=== PATIENT | female | born 1950 | race Caucasian/White ===

== ENCOUNTER 2016-12-04 10:33 | Observation (INO) | payer OTHER ==
[2016-12-04] MEDS ORDERED: ASPIRIN CHEWTAB 81 MG TABLET ONE (11:36)
[2016-12-04 11:37] LABS: ABSOLUTE NEUTROPHIL COUNT 4.1 K/mm3 (1.8-7.7); BASO % 0.6 % (0.2-1.0); EOS # 0.2 (0.0-0.5); EOS % 2.5 % (0.9-2.9); HEMATOCRIT 42.6 % (37.0-47.0); HEMOGLOBIN 13.9 gm/l (12.0-16.0); IMM NEUT% 0.3 % (0-1); LYMPH % 29.3 % (15-45); MEAN CELL VOLUME 90.1 fl (81.0-99.0); MEAN CORPUSCULAR HEMOGLOBIN 29.4 pg (27.0-31.0); MEAN CORPUSCULAR HGB CONC 32.6 g/dl (33.0-37.0); MEAN PLATELET VOLUME 10.4 fl (7.4-10.4); MONO # 0.4 (0.0-0.8); MONO % 5.4 % (4-12); NEUT % 61.9 % (43-75); PLATELET COUNT 336 K/mm3 (130-400); RED CELL DISTRIBUTION WIDTH 13.4 % (11.5-14.5)
[2016-12-04 11:41] LABS: URINE BILIRUBIN NEGATIVE (NEGATIVE); URINE BLOOD NEGATIVE (NEGATIVE); URINE GLUCOSE (UA) NEGATIVE (NEGATIVE); URINE LEUKOCYTE ESTERASE NEGATIVE (NEGATIVE); URINE NITRITE NEGATIVE (NEGATIVE); URINE PROTEIN NEGATIVE (NEGATIVE); URINE UROBILINOGEN NORMAL (0-1 mg/dl)
[2016-12-04 11:48] LABS: ALB/GLOB RATIO 1.2 (>1.0); CALCIUM 9.6 mg/dL (8.6-10.3); MAGNESIUM 1.9 mg/dL (1.9-2.7)
[2016-12-04 11:48] LABS: URINE APPEARANCE CLEAR; URINE COLOR YELLOW
--- NOTE | 2016-12-04 12:06 | RAD ---
CHEST 2 VIEWS HISTORY: Chest pain. Frontal and lateral chest radiographs dated 12/04/2016. COMPARISON: None. FINDINGS: FOCAL AIRSPACE OPACITY: No gross airspace consolidation. PLEURAL EFFUSION: None. CARDIOMEDIASTINAL SILHOUETTE: Moderate hiatal hernia. PNEUMOTHORAX: None identified. OSSEOUS STRUCTURES: No grossly destructive lesions. Moderate thoracic disc degeneration. IMPRESSION: No acute cardiopulmonary process noted. Moderate hiatal hernia noted.
[2016-12-04 15:10] VITALS: BMI 37.9
[2016-12-04] MEDS ORDERED: NITROGLYCERIN 0.4 MG/TAB.SUBL BOT SL PRN (16:10)
[2016-12-04] MEDS ORDERED: SODIUM CHLORIDE 0.9% 100 ML IV PRN (17:22)
[2016-12-04] MEDS ORDERED: BLISTEX LIPSTICK 1 EACH TP PRN (17:22)
[2016-12-04] MEDS ORDERED: BISACODYL 5 MG TABLET.EC PO PRN (17:22)
[2016-12-04] MEDS ORDERED: MENTHOL/CETYLPYRD 1 EACH LOZENGE PO PRN (17:22)
[2016-12-04] MEDS ORDERED: INSULIN ASPART (DOSE) 100 UNITS/1 ML SUB-Q PRN (17:22)
[2016-12-04] MEDS ORDERED: MAGNESIUM HYDROXIDE 30 ML UDCUP PO PRN (17:22)
[2016-12-04] MEDS ORDERED: ACETAMINOPHEN 325 MG TABLET PO PRN (17:22)
[2016-12-04] MEDS ORDERED: BISACODYL 10 MG SUP PR PRN (17:22)
[2016-12-04] MEDS ORDERED: ALBUTEROL SULFATE 200 PUFFS/INH INHALER IH PRN (17:39)
[2016-12-04] MEDS: PANTOPRAZOLE 40 MG TABLET DR PO SCH (18:36)
--- NOTE | 2016-12-04 20:42 | HP ---
RASHAD BOBO [id number] DATE OF : 1950 DATE OF ADMISSION: 12/04/2016 IDENTIFICATION: Ms. Bobo is a 66-year-old followed by Dr. Camilo Fuentes. CHIEF COMPLAINT: Chest pressure. HISTORY OF PRESENT ILLNESS: Ms. Bobo reports two nights this week, Wednesday and , with abdominal pain. She describes this as a constant ache that was quite severe, not associated with nausea, vomiting or any bowel changes. She did not seek medical attention for the abdominal pain. It resolved early this Wednesday morning. Then at about 8:00 A.M. today she started having chest pressure. This is described as a constant ache, substernal, associated with dyspnea, tremors and anxiety. She did feel like her heart was racing. There was no radiation of the pressure and no associated nausea or diaphoresis. She has no prior history of similar events. In the emergency department she was treated with oral aspirin and sublingual nitroglycerin, and the pressure resolved. Workup was otherwise negative and she was referred to the Hospitalist Service for observation. REVIEW OF SYSTEMS: HEENT - she reports a headache this morning. No lightheadedness or loss of consciousness. No problems with ears, eyes, nose or throat. Respiratory - she had upper respiratory symptoms with a cough a couple of weeks ago, but that has resolved. No coughing now. A little bit of dyspnea with the chest pressure. Cardiac - chest pressure and racing heart. Gastrointestinal - denies nausea, vomiting or reflux symptoms. Denies diarrhea, constipation, hematochezia or melena. She had the generalized abdominal pain Wednesday and nights as described above. Genitourinary - no dysuria, urgency or hematuria. Musculoskeletal - no complaints. Constitutional - no fevers or chills. PAST MEDICAL HISTORY: 1. Diabetes mellitus Type-2, with no known complications. 2. Benign essential hypertension. 3. Depression with anxiety. 4. Mild intermittent asthma. 5. Obesity, with a body mass index of 37.9. 6. Hiatal hernia noted on chest x-ray. The patient was not previously aware of that. PAST SURGICAL HISTORY: None. ALLERGIES: None. MEDICATIONS: 1. Albuterol inhaler, which she uses as needed. 2. Strattera 100 mg by mouth daily. 3. Montelukast 10 mg by mouth daily. 4. Losartan with hydrochlorothiazide 100/12.5 once daily. 5. Amlodipine 5 mg by mouth daily. 6. Metformin 500 mg by mouth twice a day. 7. Bupropion 300 mg by mouth daily. 8. Venlafaxine 37.5 three capsules by mouth daily. 9. Fluticasone 110 two puffs twice a day for asthma. HABITS: She is a former smoker, with a 25 year or so history of about a half pack a day. She quit greater than ten years ago. She does drink alcohol, one vodka martini in the evening for five days a week. SOCIAL HISTORY: She lives with her in [place]. 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 FAMILY HISTORY: Father had hypertension. No known coronary artery disease. PHYSICAL EXAMINATION: GENERAL: This is a pleasant obese woman who appears younger than her 66 years. VITAL SIGNS: Temperature 98.4 degrees Fahrenheit. Blood pressure 140/73. Pulse 87. Respiratory rate 20. Oxygen saturation 98% on room air. HEENT: Atraumatic. Pupils equal, round and reactive. Extraocular muscles intact. Oropharynx is moist. Dentition in good condition. NECK: No jugular venous distention, but she is somewhat diaphoretic. CHEST: Clear to auscultation. HEART: Regular. No murmur appreciated. ABDOMEN: Obese, soft and nontender. Normal bowel tones. No organomegaly. EXTREMITIES: Good peripheral pulses. No cyanosis, clubbing or edema. NEUROLOGIC: She is alert and oriented and has no focal deficits. LABORATORIES: CBC is entirely within normal limits. D-dimer normal at 0.27. Sodium 135, potassium 3.8, chloride 102, C02 of 24, BUN of 21 and creatinine 0.9. Glucose is elevated at 185. Liver enzymes are normal. Troponin-I less than 0.01. Lipase is normal. Urinalysis is completely negative. IMAGING: Chest x-ray; no acute cardiopulmonary process, but a moderate hiatal hernia is noted. EKG: Sinus rhythm, with Q-waves in III and aVF, suggesting possible old inferior infarction. ASSESSMENT: Ms. Bobo is a 66-year-old with diabetes, hypertension and a history of cigarette smoking who presents with chest pressure and abnormal, but not acutely so, EKG. PLAN: 1. Refer to observation with telemetry monitoring. 2. Repeat troponin at six hour intervals. 3. Anticipate Sanchez protocol myocardial perfusion study in the morning. 4. Continue outpatient medications. 5. Add pantoprazole. 6. Blood sugars before meals and at bedtime and cover with insulin as needed. 7. Venous thromboembolism risk is low and she does not require prophylaxis.. 8. Full code status. 9. She will continue aspirin and nitroglycerin as started in the emergency department. cc: Dr. Camilo Fuentes
[2016-12-04] MEDS: METFORMIN XR 500 MG TAB.XL PO SCH (20:51)
[2016-12-04] MEDS: DOCUSATE SODIUM 100 MG CAPSULE PO SCH (21:17)
[2016-12-04] MEDS: FLUTICASONE PROP 110 MCG 120 PUFF/INHALER IH SCH (21:18)
[2016-12-05 07:20] VITALS: BP 136/78
[2016-12-05] MEDS ORDERED: BUPROPION HCL 150 MG XL TAB.ER.24H PO SCH (09:00)
[2016-12-05] MEDS ORDERED: HYDROCHLOROTHIAZIDE 12.5 MG CAP PO SCH (09:00)
[2016-12-05] MEDS ORDERED: VENLAFAXINE 37.5 MG PO SCH (09:00)
[2016-12-05] MEDS ORDERED: ASPIRIN (ENTERIC COATED) 325 MG TABLET.EC PO SCH (09:00)
[2016-12-05] MEDS ORDERED: LOSARTAN POTASSIUM 50 MG TABLET PO SCH (09:00)
[2016-12-05] MEDS ORDERED: MONTELUKAST SODIUM 10 MG TABLET PO SCH (09:00)
[2016-12-05] MEDS ORDERED: ATOMOXETINE HCL 100 MG PO SCH (09:00)
--- NOTE | 2016-12-05 10:55 | NUC MED ---
Exam: Nuclear medicine myocardial SPECT, ejection fraction and wall motion Comparison: None Indication: Diabetes and chest pain. Technique: 14.0 mCi of technetium 99m sestamibi were administered for the rest portion of the exam and SPECT imaging was obtained per protocol. Stress was achieved Sanchez protocol in which 80% of maximum heart rate was matched. Please see separate EKG for report. At maximum stress, 44.1 mCi of technetium 99m sestamibi were administered and SPECT imaging was obtained per protocol. Findings: Ejection fraction is calculated at 81%%. Relative hypokinesia of the apex is noted but may be artifact in females. No significant focal wall motion abnormalities are seen. Myocardial perfusion is normal during both stress and rest. Impression: 1. No evidence of significant stress-induced ischemia. 2. Ejection fraction 81%. 3. No significant focal wall motion abnormalities. Report called to Dr. Rockwell 1050 hours 12/05/2016.
--- NOTE | 2016-12-05 11:10 | PDOC43 ---
- Subjective Chief Complaint: chest pain no symptoms since admit. - Objective Vital Signs Temperature 97.7 F 12/05/16 07:19 Pulse Rate 86 12/05/16 07:19 Respiratory Rate 18 12/05/16 07:19 Blood Pressure 136/78 12/05/16 07:19 O2 Saturation by Pulse Oximetry 98 12/05/16 07:19 Oxygen Delivery Method Room Air Oxygen Flow Rate 0 Intake and Output 12/04/16 12/05/16 12/06/16 06:59 06:59 06:59 Intake Total 220 Balance 220 General: Alert, Oriented x3, Cooperative, No Acute Distress HEENT: Mucous membr. moist/pink Lungs: Clear to Auscultation Bilaterally Cardiovascular: Regular Rate and Rhythm Abdomen: Soft, Normal Bowel Sounds, No Tenderness, No Masses Extremities: Normal Pulses, No Edema Skin: Normal Color Neurological: Normal Speech Psych/Mental Status: Normal Mood 12/05/16 12/05/16 12/04/16 10:47 07:01 20:55 POC Capillary Glucose 104 H 113 H 116 H Current Medications: Current meds reviewed in EMR. - Problems: Assessment/Plan (1) Chest pain Status: Acute Assessment/Plan: Negative enzymes, ETT, and MPI. Discharge (2) Anxiety and depression Status: Chronic Assessment/Plan: Continue usual meds (3) Asthma Qualifiers: Asthma severity: mild intermittent Status: Chronic Assessment/Plan: stable (4) Diabetes type 2, controlled Qualifiers: Diabetes mellitus complication status: without complication Diabetes mellitus terminal make up operator insulin use: without intermediate use Qualifier Code: (E11.9 ) Type 2 diabetes mellitus without complications Status: Chronic Assessment/Plan: Well controlled (5) HTN (hypertension), benign Status: Chronic Assessment/Plan: resume amlodipine (6) Hiatal hernia Status: Chronic Assessment/Plan: May be source of symptoms, discuss with PCP Dr. Cardenas (7) Obesity, Class II, BMI 35-39.9 Status: Chronic Assessment/Plan: Complicates care by contributing to hiatal hernia.
[2016-12-05] MEDS: PANTOPRAZOLE 40 MG TABLET DR PO SCH (11:31)
[2016-12-05] MEDS: DOCUSATE SODIUM 100 MG CAPSULE PO SCH (11:47)
[2016-12-05] MEDS: METFORMIN XR 500 MG TAB.XL PO SCH (11:53)
[2016-12-05] MEDS: FLUTICASONE PROP 110 MCG 120 PUFF/INHALER IH SCH (11:53)
== END 2016-12-05 12:01 | disposition home or self-care (01) ==
LOC: ED 10:33 → UNDOADMOB 14:21 → MS 14:21 → UNDODISOB 12-05 12:01
PROVIDERS: ADMIT Family Medicine; ATTEND Family Medicine
DX: K44.9 Diaphragmatic hernia without obstruction or gangrene (principal); E11.9 Type 2 diabetes mellitus without complications; I10 Essential (primary) hypertension; F41.8 Other specified anxiety disorders; J45.20 Mild intermittent asthma, uncomplicated; E66.9 Obesity, unspecified; Z68.37 Body mass index [BMI] 37.0-37.9, adult; Z79.84 Long term (current) use of oral hypoglycemic drugs
CPT/HCPCS: 83690; 85379; 85025; 80053; 83735; 81003; 84484 ×3; 71020; 78452; 99285 ×2; 93017; A9270 ×12; A9500